=== PATIENT | female | born 1975 | race Caucasian/White ===

== ENCOUNTER → 2022-01-19 | Outpatient (CLI) | payer OTHER ==
[~2022-01-19] MED LIST: LEXAPRO 10 MG T10 M2 PO; NAPROSYN500 MG PO; ONDANSETRON HCL4 M2 PO; PERCOCET 5-3251 EACH PO
== END ==
LOC: CAT 09:25
PROVIDERS: ATTEND Internal Medicine Cardiovascular Disease
DX: Z13.6 Encounter for screening for cardiovascular disorders (principal); E78.00 Pure hypercholesterolemia, unspecified; I25.10 Atherosclerotic heart disease of native coronary artery without angina pectoris